=== PATIENT | male | born 1995 | race Caucasian/White ===

== ENCOUNTER 2019-06-06 16:17 | Emergency (ER) | payer OTHER ==
--- NOTE | 2019-06-06 17:18 | EDM.PDOC ---
ED HPI GENERAL MEDICAL PROBLEM - General Chief Complaint: Back Pain or Injury Stated Complaint: L SIDE RIB PAIN Time Seen by Provider: 06/06/19 16:19 Source of Information: Reports: Patient History Limitations: Reports: No Limitations - History of Present Illness INITIAL COMMENTS - FREE TEXT/NARRATIVE: The patient presents with left upper back pain. He was lifting a 100 pound roll of wire and he felt severe pain to the left upper back and ribs. He has no shortness of breath but it does hurt to take a deep breath. He has no fever or chills. He has no abdominal pain, nausea or vomiting. 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 [No Known Home Meds] 06/06/19 [History] Past Medical History - Past Surgical History Musculoskeletal Surgical History: Reports: Other (See Below) Other Musculoskeletal Surgeries/Procedures:: wrist surgery Social & Family History - Tobacco Use Smoking Status *Q: Never Smoker - Caffeine Use Caffeine Use: Reports: Coffee - Recreational Drug Use Recreational Drug Use: No ED ROS GENERAL - Review of Systems Review Of Systems: See Below Constitutional: Reports: No Symptoms HEENT: Reports: No Symptoms Respiratory: Reports: No Symptoms Cardiovascular: Reports: No Symptoms Endocrine: Reports: No Symptoms GI/Abdominal: Reports: No Symptoms : Reports: No Symptoms Musculoskeletal: Reports: Back Pain (Left side) ED EXAM, UPPER BACK/NECK PAIN - Physical Exam Exam: See Below Exam Limited By: No Limitations General Appearance: Alert, No Apparent Distress Ears Exam: Normal External Exam Nose Exam: Normal Inspection Head Exam: Atraumatic, Normocephalic Neck Exam: Non-Tender Cardiovascular/Respiratory: Regular Rate, Rhythm, No M/R/G, Normal Breath Sounds , No Respiratory Distress GI/Abdominal: Soft, Non-Tender, No Organomegaly, No Mass Back Exam: Other (Left mid back pain with palpation) Extremities: Normal Inspection Course - Vital Signs Last Recorded V/S: Last Vital Signs Temp 97.9 F 06/06/19 16:28 Pulse 70 06/06/19 16:28 Resp 18 06/06/19 16:28 BP 141/91 H 06/06/19 16:28 Pulse Ox 100 06/06/19 16:28 - Orders/Labs/Meds Orders: Active Orders 24 hr Category Date Time Status CXR [Chest 2V] [CR] Stat Exams 06/06/19 16:42 Taken - Re-Assessments/Exams Free Text/Narrative Re-Assessment/Exam: 06/06/19 17:17 I ordered a CXR. His bones look good and he has no pneumo thorax. Please return if you are worse. Departure - Departure Time of Disposition: 17:20 Disposition: Home, Self-Care 01 Condition: Good Clinical Impression: Muscle strain of left upper back Qualifiers: Encounter type: initial encounter Qualified Code(s): S29.012A - Strain of muscle and tendon of back wall of thorax, initial encounter - Discharge Information *PRESCRIPTION DRUG MONITORING PROGRAM REVIEWED*: Not Applicable *COPY OF PRESCRIPTION DRUG MONITORING REPORT IN PATIENT PAULETTE: Not Applicable Referrals: PCP,None [Primary Care Provider] - Sergio Nolan PA-C [Physician Public Bath Attendant] - 1 Week Additional Instructions: Ice the area that hurts for 15minutes 3 times per day for 2 days. Take motrin or aleve for the pain. Please return if you are worse. Sepsis Event Note - Evaluation Sepsis Screening Result: No Definite Risk - Focused Exam Vital Signs: Vital Signs Temp Pulse Resp BP Pulse Ox 06/06/19 16:28 97.9 F 70 18 141/91 H 100 Date Exam was Performed: 06/06/19 Time Exam was Performed: 17:13 - My Orders Last 24 Hours: My Active Orders 06/06/19 16:42 CXR [Chest 2V] [CR] Stat - Assessment/Plan Last 24 Hours: My Active Orders 06/06/19 16:42 CXR [Chest 2V] [CR] Stat
--- NOTE | 2019-06-07 08:32 | CR ---
Chest: PA and lateral views of the chest were obtained. Comparison: No previous chest x-ray. Heart size and mediastinum are normal. Lungs are clear. Minimal scoliosis is noted within the spine. No acute bony finding is seen. Impression: 1. Nothing acute is seen on two-view chest x-ray. Diagnostic code #2 This report was dictated in [place] Standard Time
== END 2019-06-06 17:27 | disposition home or self-care (01) ==
LOC: JD.ED 16:17
DX: S29.012A Strain of muscle and tendon of back wall of thorax, initial encounter (principal); X58.XXXA Exposure to other specified factors, initial encounter
CPT/HCPCS: 71046; 71046-26; 99282; 99283-25